=== PATIENT | female | born 1990 | race Caucasian/White ===

== ENCOUNTER 2016-06-05 11:48 | Emergency (ER) ==
[2016-06-05 14:16] LABS: MANUAL DIFF NEEDED? NO
[2016-06-05 14:20] LABS: BASO% 0.2 % (0.0-0.8); EOS# 0.28 X1000 (0.0-0.7); EOS% 2.1 % (0.0-10.0); HEMATOCRIT 37.3 % (37.0-47.0); HEMOGLOBIN 12.5 g/dL (12.0-16.0); IMM GRAN# 0.02 X1000 (0.0-0.04); IMM GRAN% 0.2 % (0.0-0.5); LYMPH# 2.24 X1000 (1.2-3.4); LYMPH% 17.1 % (20.5-51.1); MCH 26.2 PG (27-31); MCHC 33.5 g/dL (33-37); MCV 78.2 FL (81-99); MONO# 0.61 X1000 (0.11-0.59); MONO% 4.6 % (1.7-9.3); MPV 10.6 FL (7.4-10.4); NEUT% 75.8 % (42.2-75.2); PLT 368 X1000 (130-400); RBC 4.77 XMIL (4.2-5.4)
[2016-06-05] MEDS ORDERED: ZOFRAN ODT PO ONE (14:28)
[2016-06-05] MEDS ORDERED: NORCO-7.5 PO ONE (14:28)
--- NOTE | 2016-06-05 14:32 | Diag Imaging Result Document ---
PROCEDURE NAME: FOOT COMPLETE LEFT - 06/05/2016 LEFT FOOT, THREE VIEWS: FINDINGS: There is a bone island in the base of the fifth metatarsal. There is no evidence of acute fracture or dislocation. IMPRESSION: No evidence of acute bony disease.
[2016-06-05 14:50] LABS: AGAP 12; ALBUMIN 4.5 g/dL (3.5-5.0); ALKALINE PHOSPHATASE 85 U/L (32-104); BUN 12 mg/dL (8-22); CALCIUM 9.6 mg/dL (8.8-10.2); CHLORIDE 94 mmol/L (98-107); COSMO 262; GOT 14 U/L (10-30); GPT 19 U/L (10-36); POTASSIUM 3.6 mmol/L (3.5-5.1); SODIUM 131 mmol/L (136-145); TCO2 25 mmol/L (25-35); TOTAL BILIRUBIN 0.39 mg/dL (0.20-1.00); TOTAL PROTEIN 8.4 g/dL (6.3-8.3); URIC ACID 5.6 mg/dL (2.4-5.7)
[2016-06-05] MEDS ORDERED: CLINDAMYCIN IM ONE (15:24)
--- NOTE | 2016-06-05 15:26 | PROVIDER DOCUMENTATION ---
HPI-Musculoskeletal Pain/Inj - GENERAL Chief Complaint: Extremity Pain Stated Complaint: TOE INJURY Time Seen by Provider: 06/05/16 13:42 Source: patient - HX OF PRESENT ILLNESS-MUSKULOSKELTAL Nature of Presenting Problem: Left great toe pain 2-3 days with erythemia and swelling. Denies injuries,fever, streaking. Quality of Pain: reports: aching Severity in ED: moderate Onset/Duration: 3 days ago Timing: still present Any recent injury?: No Locality of Occurance: Home Similar Symptoms Previously?: Yes Recently seen or treated by another doctor?: No Review of Systems - Adult - REVIEW OF SYSTEMS - ADULT Constitutional: denies: chills, fever, fatique Eyes: reports: no symptoms reported Ears, Nose, Mouth & Throat: reports: no symptoms reported Cardiovascular: denies: chest pain, irregular heart rate, orthopnea Respiratory: reports: no symptoms reported Gastrointestinal: reports: no symptoms reported Genitourinary: reports: no symptoms reported Musculoskeletal: reports: see HPI. denies: frequent leg cramps, muscle weakness , neck pain Integumentary: reports: no symptoms reported Neurological: reports: no symptoms reported Psychiatric: reports: no symptoms reported Endocrine: reports: no symptoms reported Hematologic/Lymphatic: reports: no symptoms reported Allergic/Immunologic: reports: no symptoms reported All Other Systems: Reviewed and Negative Past History - Adult - PAST MEDICAL HISTORY-ADULT Review of Records: reports: Nursing Assessment Review, Medications Reviewed Major Childhood Illnesses: reports: denies history Cardiovascular: reports: denies history - PRIOR SURGERIES/PROCEDURES Surgical/Procedure History: reports: , tonsillectomy, orthopedic ( extremity) (2 rt wrist), other (adnoids) - IMMUNIZATION STATUS Childhood Immunizations: See Nurse Assessment Flu Vaccine: See Nurse Assessment - FAMILY HISTORY Family History: reviewed, not pertinent - SOCIAL HISTORY Smoking: denies Substance Use: none/never Physical Exam-Injury Related - Physical Exam-Injury Related Initial Vital Signs Reviewed: Yes General Appearance: appears well, alert, no apparent distress Eyes: PERRL/EOMI, pink conjunctivae Head, Ears, Nose, Mouth & Throat: normocephalic/atraumatic, moist mucous membranes, normal ENT inspection, TMs normal, pharynx normal Neck: non-tender, full range of motion, supple, normal inspection Respiratory: chest non-tender, lungs clear, normal breath sounds, no pleuratic chest pain, no respiratory distress, no accessory muscle use Cardiovascular: normal peripheral pulses, regular rate, rhythm, no edema, no gallop, no JVD, no murmur Abdominal Exam: normal bowel sounds, non tender, soft, no organomegaly, no pulsatile mass Lymphatic: no adenopathy Back Exam: normal inspection, no CVA tenderness, no vertebral tenderness Extremity: normal range of motion, normal gait, normal inspection, no pedal edema, no calf tenderness, normal capillary refill, pelvis stable, swelling ( left great toe erythmemic and swelling) Integumentary: normal color, warm/dry 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, no motor/sensory deficits Psych/Mental Status: AL, normal mood/affect, normal thought content, normal thought process, oriented x 3 Progress - PLAN OF CARE/RESULTS Progress/Plan/Lab Results: Orders Category Date Time Status FOOT COMPLETE LEFT [RAD] Stat Exams 06/05/16 13:54 Completed CBC WITH ELECTRONIC DIFF [HEME] Stat Lab 06/05/16 13:54 Results COMPREHENSIVE METABOLIC PANEL [CHEM] Stat Lab 06/05/16 13:54 Completed SED RATE [HEME] Stat Lab 06/05/16 13:54 Results URIC ACID [CHEM] Stat Lab 06/05/16 13:54 Completed Clindamycin Med 06/05/16 15:24 Discontinued 600 mg IM NOW ONE Hydrocodone/APAP 7.5 mg/325 mg [Linwood-7.5] Med 06/05/16 14:28 Discontinued 1 each PO NOW ONE Ondansetron Odt [Zofran Odt] Med 06/05/16 14:28 Discontinued 4 mg PO NOW ONE Vital Signs - 24 hr 06/05/16 13:35 Temperature 98.6 F Pulse Rate 85 Respiratory 20 Rate Blood Pressure 119/71 O2 Sat by Pulse 100 Oximetry Laboratory Tests 06/05/16 06/05/16 13:54 13:54 WBC 13.12 H RBC 4.77 Hgb 12.5 Hct 37.3 MCV 78.2 L MCH 26.2 L MCHC 33.5 RDW Std Deviation 13.5 Plt Count 368 MPV 10.6 H Immature Gran % (Auto) 0.2 Neut % (Auto) 75.8 H Lymph % (Auto) 17.1 L Webb % (Auto) 4.6 Eos % (Auto) 2.1 Baso % (Auto) 0.2 Immature Gran # (Auto) 0.02 Neut # (Auto) 9.94 H Lymph # (Auto) 2.24 Webb # (Auto) 0.61 H Eos # (Auto) 0.28 Baso # (Auto) 0.03 Sodium 131 L Potassium 3.6 Chloride 94 L Carbon Dioxide 25 Anion Gap 12 BUN 12 Creatinine 1.0 H Estimated GFR/1.73 m2 > 60 BUN/Creatinine Ratio 12 Glucose 91 Calculated Osmolality 262 Uric Acid 5.6 Calcium 9.6 Total Bilirubin 0.39 AST 14 ALT 19 Alkaline Phosphatase 85 Total Protein 8.4 H Albumin 4.5 Globulin 3.9 Albumin/Globulin Ratio 1.2 Pt agreed with poc and outpatient treatment. - XRAY 1 XRAY: Left XRAY Study: Foot Impression: Normal XRAY Interpretation: no fx Departure - Departure Time of Disposition Order: 15:24 DIAGNOSIS: Cellulitis Qualifiers: Site of cellulitis: other site Qualified Code(s): L03.818 - Cellulitis of other sites Gout Qualifiers: Gout site: toe Gout etiology: unspecified cause Laterality: left Chronicity: chronic Presence of tophus: without tophus Qualified Code(s): M1A.9XX0 - Chronic gout, unspecified, without tophus (tophi) Disposition: HOME 01 Certified Medical Emergency: Emergent Condition: Stable Additional Instructions: ED Follow Up Instructions: You have been treated by a care provider in the Emergency Department. These instructions are being provided to you so you can have an understanding of how to care for yourself upon discharge. Upon discharge from the Emergency Department, you are responsible for making arrangements for follow-up care by a physician of your choice. Take all prescribed medications as directed. Return to the Emergency Department immediately for any new or worsening symptoms. You may call the Physician Referral phone number at [phone] to obtain a list of Physicians who are taking new patients. Prescriptions: Clindamycin [Cleocin] 150 mg PO Q6HR #30 capsule Ibuprofen [Motrin] 800 mg PO Q8H PRN PRN #20 tablet PRN Reason: inflammation Omeprazole [Prilosec] 20 mg PO DAILY@0700 #20 capsule Referrals: None,PCP [Primary Care Provider] - Attestation - Scribe Verification/Attestation Scribe:: Tim Tapia Acting as Scribe for:: Burton Woodard Scribe documention review:: This chart was documented by a scribe and accurately reflects the service the provider performed and the decisions made by the provider.
[2016-06-05 15:27] LABS: SED RATE 43 mm/hr (0-20)
[2016-06-05 15:43] VITALS: BP 119/73
== END 2016-06-05 16:10 | disposition home or self-care (01) ==
LOC: ED 11:48
DX: L03.818 Cellulitis of other sites (principal); M1A.9XX0 Chronic gout, unspecified, without tophus (tophi); M79.675 Pain in left toe(s); L53.9 Erythematous condition, unspecified; M79.89 Other specified soft tissue disorders
CPT/HCPCS: 36415; 80053; 84550; 85025; 85651; 96372; S0077

== ENCOUNTER 2016-08-01 08:25 | Emergency (ER) ==
[2016-08-01 08:37] VITALS: BP 120/67
--- NOTE | 2016-08-01 09:31 | PROVIDER DOCUMENTATION ---
HPI-General Adult - General Chief Complaint: Flu Symptoms Stated Complaint: SORE THROAT,VOMITING,ELIAS,COUGHING,CONGESTED Time Seen by Provider: 08/01/16 09:08 Source: patient Allergies/Adverse Reactions: Patient Allergies Allergy/AdvReac Type Severity Reaction Status Date / Time No Known Allergies Allergy Verified 08/01/16 09:15 Home Medications: Home Medication List Medication Instructions Recorded Confirmed Last Taken Type Ondansetron Odt [Zofran 8Mg Odt] 8 mg PO Q8H PRN PRN #20 tablet 08/01/16 Unknown Rx Oseltamivir [Tamiflu] 75 mg PO BID #10 capsule 08/01/16 Unknown Rx Promethazine [Phenergan] 25 mg PO Q6H PRN PRN #20 tablet 08/01/16 Unknown Rx - History of Present Illness -Gen Adult Nature of Presenting Problems: 26 y/o WF c/o cough, vomiting, diarrhea, sore throat, ear pain, ELIAS, fever/ chills x 1 day. Pt states she has not taken her temp at home, but states feels hot and cold. Cough is not productive. Reports mother dx with influenza yesterday. Denies influenza vaccine. Took motrin this morning. Vomit x 5, diarrhea x 2. Denies any abd. pain. Review of Systems - Adult - REVIEW OF SYSTEMS - ADULT Constitutional: reports: see HPI, chills, fever Eyes: reports: no symptoms reported. denies: blurred vision, double vision Ears, Nose, Mouth & Throat: reports: see HPI, ear pain, throat pain. denies: nose pain Cardiovascular: reports: no symptoms reported. denies: chest pain, palpitations Respiratory: reports: see HPI, cough. denies: shortness of breath Gastrointestinal: reports: see HPI, diarrhea, nausea, vomiting. denies: abdominal pain, hematemesis Genitourinary: reports: no symptoms reported. denies: dysuria, frequency Musculoskeletal: reports: see HPI, muscle aches. denies: joint pain, joint swelling Integumentary: reports: no symptoms reported. denies: nail changes, rash Neurological: reports: see HPI, headache/migraines. denies: numbness, paresthesia Psychiatric: reports: no symptoms reported Endocrine: reports: no symptoms reported. denies: cold intolerance, heat intolerance Hematologic/Lymphatic: reports: no symptoms reported. denies: easy bruising, prolonged bleeding Allergic/Immunologic: reports: no symptoms reported All Other Systems: Reviewed and Negative Past History - Adult - PAST MEDICAL HISTORY-ADULT Review of Records: reports: Nursing Assessment Review, Medications Reviewed Major Childhood Illnesses: reports: denies history Cardiovascular: reports: denies history - PRIOR SURGERIES/PROCEDURES Surgical/Procedure History: reports: , tonsillectomy, orthopedic ( extremity) (2 rt wrist), other (adnoids) - IMMUNIZATION STATUS Childhood Immunizations: See Nurse Assessment Flu Vaccine: See Nurse Assessment - FAMILY HISTORY Family History: reviewed, not pertinent - SOCIAL HISTORY Smoking: denies Physical Exam-General - PHYSICAL EXAM-ADULT Initial Vital Signs Reviewed: Yes - CONSTITUTIONAL General Appearance: alert, mild distress - EYES Eyes: pink conjunctivae - HEAD, EARS, NOSE, MOUTH & THROAT HENMT: normocephalic/atraumatic, moist mucous membranes, TMs normal, pharyngeal erythema. negative: tonsillar exudate - NECK Neck: supple, normal inspection. negative: Brudzinski's sign, lymphadenopathy - RESPIRATORY Respiratory: lungs clear, normal breath sounds. negative: crackles, rales, rhonchi, stridor, wheezing - CARDIOVASCULAR Cardiovascular: regular rate, rhythm. negative: bradycardia, tachycardia - GASTROINTESTINAL (ABDOMEN) Abdominal Exam: normal bowel sounds, soft, tenderness (generalized, mild). negative: distended, guarding, rigid, rebound, McBurney's point tenderness, Bynum's sign - LYMPHATIC Lymphatic: no adenopathy - MUSCULOSKELETAL Back Exam: normal inspection Extremity: normal gait - SKIN Integumentary: normal color, normal turgor, warm/dry - NEUROLOGIC Neurologic: negative: aphasia - PSYCHIATRIC Psych/Mental Status: normal mood/affect, normal thought content, normal thought process, oriented x 3 Progress - PLAN OF CARE/RESULTS Progress/Plan/Lab Results: Orders Category Date Time Status Flu Swab [INFLUENZA SCREEN A/B] Stat Lab 08/01/16 08:37 Completed Vital Signs Temp Pulse Resp BP Pulse Ox 08/01/16 08:34 97.7 F 78 20 120/67 100 No Known Allergies Allergy (Verified 08/01/16 09:15) Ondansetron Odt [Zofran 8Mg Odt] 8 mg PO Q8H PRN PRN #20 tablet 08/01/16 Oseltamivir [Tamiflu] 75 mg PO BID #10 capsule 08/01/16 Promethazine [Phenergan] 25 mg PO Q6H PRN PRN #20 tablet 08/01/16 Influenza - Discussed medication use and return precautions with pt. Departure - Departure Time of Disposition Order: 09:29 DIAGNOSIS: Exposure to influenza, Viral syndrome Disposition: HOME 01 Certified Medical Emergency: Emergent Condition: Stable Additional Instructions: Take medications as directed. Drink plenty of fluids. Tylenol and/or motrin for body aches/fever. Return if symptoms get worse. ED Follow Up Instructions: You have been treated by a care provider in the Emergency Department. These instructions are being provided to you so you can have an understanding of how to care for yourself upon discharge. Upon discharge from the Emergency Department, you are responsible for making arrangements for follow-up care by a physician of your choice. Take all prescribed medications as directed. Return to the Emergency Department immediately for any new or worsening symptoms. You may call the Physician Referral phone number at [phone] to obtain a list of Physicians who are taking new patients. Prescriptions: Promethazine [Phenergan] 25 mg PO Q6H PRN PRN #20 tablet PRN Reason: Nausea Oseltamivir [Tamiflu] 75 mg PO BID #10 capsule Ondansetron Odt [Zofran 8Mg Odt] 8 mg PO Q8H PRN PRN #20 tablet PRN Reason: Nausea Referrals: None,PCP [Primary Care Provider] - Attestation - Physician/ JAMES Attestation Patient care was provided by Advanced Practice Provider:: Yes Advanced Practice Provider:: Ursula Blanc Advanced Practice Provider documentation review:: The Mid-level provider documentation, treatment plan and medical decision making was reviewed by the physician who agrees with all treatment and medical decision making by the P.
[2016-08-01] MEDS ORDERED: ZOFRAN ODT PO ONE (09:33)
[2016-08-01] MEDS ORDERED: ZOFRAN ODT ONE (09:36)
== END 2016-08-01 09:42 | disposition home or self-care (01) ==
LOC: ED 08:25
DX: B34.9 Viral infection, unspecified (principal); J02.9 Acute pharyngitis, unspecified; R11.10 Vomiting, unspecified; R51 Headache; R05 Cough; R09.81 Nasal congestion; R19.7 Diarrhea, unspecified; H92.09 Otalgia, unspecified ear; R50.9 Fever, unspecified; M79.1 Myalgia; R10.817 Generalized abdominal tenderness; Z20.89 Contact with and (suspected) exposure to other communicable diseases
CPT/HCPCS: 87804